=== PATIENT | male | born 1970 | race Caucasian/White ===

== ENCOUNTER 2017-09-22 14:40 | Outpatient (CLI) | payer BC ==
--- NOTE | 2017-09-22 17:13 | RAD ---
THREE VIEWS OF THE RIGHT SHOULDER: DATE: 09/22/17. COMPARISON: None. HISTORY: Right shoulder pain. FINDINGS: There is right AC joint degenerative change with interspace narrowing and inferior osteophyte formati on. No widening of the coracoclavicular interspace. There is no displaced fracture or evidence of d islocation seen. IMPRESSION: Degenerative change of the right acromioclavicular joint. No acute osseous abnormality. POS: [facility]
== END 2017-09-22 14:41 | disposition home or self-care (01) ==
LOC: NAV RAD 14:40
PROVIDERS: ATTEND Family Medicine
DX: M25.511 Pain in right shoulder (principal); M19.011 Primary osteoarthritis, right shoulder

== ENCOUNTER 2023-02-13 07:01 | Outpatient (CLI) | payer BC | END 2023-02-13 07:02 | disposition home or self-care (01) | LOC: NAV RAD 07:01 | PROVIDERS: ATTEND Family Medicine | DX: M54.50 Low back pain, unspecified (principal); M47.816 Spondylosis without myelopathy or radiculopathy, lumbar region | CPT/HCPCS: 72100 ==